=== PATIENT | male | born 1955 | race Caucasian/White ===

== ENCOUNTER → 2016-12-07 | Outpatient (CLI) | payer OTHER ==
[~2016-12-07] MED LIST: AMLODIPINE BESY10 MG PO; ASPIRIN81 M1 PO; COREG PO; COREG6.25 MG PO; COZAAR100 MG PO; DIOVAN HCT 80/11 TAB PO; FERROUS SULFATE1 TAB PO; FOLIC ACID1 MG PO; HUMALOG; HUMULIN R100 U/ML SUBQ; LANTUS; LANTUS100 UNITS/ SUBQ; LIPITOR40 MG PO; LOTENSIN HCT 201 TAB PO; NITROGLYGERIN0.4 MG SL; NOVOLOG100 U/ML SUBQ; NOVOLOG100 UNITS/ INJ; PHENOL-SODIUM180 ML; [UNRECOGNIZED DRUG - CODE] SUBQ
--- NOTE | ~2016-12-07 | TH ---
Unit #: [id number] #: [id number] Patient: JAMES SPARKS JR [id number] [address] [address] [id number] O MR#: [id number] NAME: JAMES SPARKS JR : 1955 SEX: M STUDY DATE/TIME: 12/07/2016 UNIT: [facility] ROOM: STUDY DESCRIPTION: Attending Physician: Adolph Jerry M.D. Referring Physician: Adolph Jerry M.D. Primary Care Physician: Toni Clark M.D. CARDIOLOGY REPORT EXAM Exercise Cardiolite stress test, nuclear portion. PROCEDURE Using technetium 99m labeled Cardiolite, rest and stress SPECT images were obtained. Multiple SPECT images were obtained in various views including horizontal and vertical long axis and short axis views of the left ventricle. Images were obtained by gated SPECT method. The patient was administered 11.97 mCi of Cardiolite at rest. The patient was administered 35.3 mEq of Cardiolite at peak exercise. Total exercise time is 9 minutes. Patient jumped off the treadmill at 9 minutes. Maximal heart rate obtained is 148, which is 91% of maximal predicted heart rate. Maximal blood pressure obtained is 210/102 mmHg. Patient had significant artifact noted at peak exercise and during recovery. No sustained arrhythmias seen. EKG portion of the test was difficult to interpret because of the significant artifact. The stress images show normal perfusion. The rest images show decreased isotope activity in the inferior wall consistent with soft tissue artifact. Comparing rest and stress images, there is no stress-induced ischemia noted. The left ventricular ejection fraction is calculated to be 59%. There is no focal wall motion abnormality seen. CONCLUSION 1. No obvious stress-induced ischemia noted. 2. The left ventricular ejection fraction is calculated to be 59%. 3. There is no focal wall motion abnormality seen. 4. Normal nuclear portion of the stress test. 5. It must be noted that the patient jumped off the treadmill because he got extremely short of breath at peak exercise. The patient also had hypertensive blood pressure response with 210/102 mmHg. The patient had a lot of motion artifact on the EKG at peak exercise and during recovery. Clinical correlation is requested. Dictated by... Jeremy Gill TD: 12/07/2016 11:20 JOB #: [id number] Unit #: [id number] #: [id number] Patient: CLAREJAMES JR CARDIOLOGY REPORT Page 1 of 1 X Tomasa Cooper MD <ELECTRONICALLY SIGNED> 12/16/16 1429 CARDIOLOGY REPORT
--- NOTE | ~2016-12-07 | ST ---
Unit #: [id number] #: [id number] Patient: JAMES SPARKS JR [id number] [facility]. [address] [address] [id number] O MR#: [id number] NAME: JAMES SPARKS JR : 1955 SEX: M STUDY DATE/TIME: 12/07/2016 UNIT: [facility] ROOM: STUDY DESCRIPTION: Exercise stress test Attending Physician: Adolph Jerry M.D. Referring Physician: Adolph Jerry M.D. Primary Care Physician: Toni Clark M.D. CARDIOLOGY REPORT STUDY PERFORMED EKG portion of Cardiolite exercise stress test. REASON FOR STUDY Coronary artery disease. PROCEDURE Baseline EKG is normal sinus rhythm with a ventricular rate of 64 and nonspecific T wave abnormalities. The patient exercised on the treadmill according to the Major protocol for 8 minutes and 20 seconds achieving a work level of 10.9 METS. Resting heart rate was 64 beats per minute. Maximal heart rate was 148 beats per minute, representing 91% of maximal age predicted heart rate. The patient's symptoms were extreme fatigue and leg burning. There were no arrhythmias noted or ST changes. The test was stopped early due to patient fatigue and inability to continue walking on the treadmill. Cardiolite was injected at 8 minutes, 20 seconds with the patient achieved maximal heart rate, but the patient could not walk after it was injected due to extreme fatigue and started leaning over on the treadmill. The test was stopped. IMPRESSION 1. This is an equivocal test. 2. There were no ST segment changes. Near the end of the test the patient experienced extreme fatigue, leg burning and inability to continue. 3. Please correlate with Cardiolite imaging. Dictated by... Maria M Smiley APRN for Jeremy Gill/donald TD: 12/07/2016 11:32 JOB #: [id number] Unit #: [id number] #: [id number] Patient: JAMES SPARKS JR CARDIOLOGY REPORT Page 1 of 1 X CARDIOLOGY REPORT
== END | disposition home or self-care (01) ==
LOC: CNUC 07:30
DX: I42.9 Cardiomyopathy, unspecified (principal); I25.10 Atherosclerotic heart disease of native coronary artery without angina pectoris
CPT/HCPCS: 78452; 93017; A9500